=== PATIENT | male | born 1990 | race Hispanic/Latino ===

== ENCOUNTER 2019-12-07 18:16 | Observation (INO) | payer OTHER ==
[2019-12-07] MEDS ORDERED: NALOXONE 0.4 MG/1 ML INJ IV STA (18:24)
[2019-12-07] MEDS ORDERED: SODIUM CHLORIDE 0.9% 1000 ML 1,000 ML IV ONE ×2 (18:24→19:06)
[2019-12-07] MEDS ORDERED: ONDANSETRON 4 MG/2 ML INJ IV ONE ×2 (18:24→22:30)
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
[2019-12-07 18:49] LABS: Basophils % (Auto) 0.2 % (0.0-1.8); Eosinophils # (Auto) 0.1 K/mm3 (0.0-0.4); Eosinophils % (Auto) 0.6 % (0.0-4.3); Hematocrit 47.1 % (35.5-45.6); Hemoglobin 15.5 gm/dl (11.8-15.2); Lymphocytes # (Auto) 3.7 K/mm3 (1.2-5.4); Lymphocytes % (Auto) 22.7 % (13.4-35.0); Mean Corpuscular HGB Conc 33 % (32-34); Mean Corpuscular Volume 92 fl (84-94); Monocytes % (Auto) 5.9 % (0.0-7.3); Platelet Count 281 K/mm3 (140-440); Red Blood Count 5.13 M/mm3 (3.65-5.03); Red Cell Distribution Width 13.5 % (13.2-15.2)
[2019-12-07 19:09] LABS: Alanine Aminotransferase 22 units/L (7-56); Albumin 4.7 g/dL (3.9-5); BUN/Creatinine Ratio 26; Blood Urea Nitrogen 23 mg/dL (9-20); Calcium 9.8 mg/dL (8.4-10.2); Hemolysis Index 95
[2019-12-07] MEDS ORDERED: LORazepam 2 MG/ML VIAL ONE (21:48)
[2019-12-07] MEDS ORDERED: ONDANSETRON 4 MG/2 ML INJ ONE (22:19)
[2019-12-07 23:22] LABS: Amphetamine Screen,Urine PRESUMPTIVE POSITIVE; Benzodiazepines Screen,Urine PRESUMPTIVE NEGATIVE; Cannabinoid Screen,Urine PRESUMPTIVE POSITIVE; Cocaine Screen,Urine PRESUMPTIVE NEGATIVE; Methadone Screen,Urine PRESUMPTIVE NEGATIVE; Opiate Screen,Urine PRESUMPTIVE NEGATIVE
[2019-12-07 23:42] LABS: Bacteria,Urine 1+ /HPF (Negative); Bilirubin,Urine NEG (Negative); Blood,Urine NEG (Negative); Color,Urine Yellow (Yellow); Mucus,Urine FEW /HPF; Protein,Urine <15 mg/dL mg/dL (Negative); RBC,Urine < 1.0 /HPF (0.0-6.0); Urobilinogen,Urine < 2.0 mg/dL (<2.0)
[2019-12-07] MEDS ORDERED: ONDANSETRON 4 MG/2 ML INJ IV PRN (23:55)
[2019-12-08] MEDS ORDERED: SODIUM CHLORIDE 0.9% 1000 ML 1,000 ML IV SCH
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
[2019-12-08 05:05] LABS: Basophils % (Auto) 0.3 % (0.0-1.8); Hematocrit 41.9 % (35.5-45.6); Lymphocytes # (Auto) 1.2 K/mm3 (1.2-5.4); Lymphocytes % (Auto) 7.3 % (13.4-35.0); Mean Corpuscular HGB Conc 34 % (32-34); Mean Corpuscular Volume 91 fl (84-94); Monocytes # (Auto) 0.4 K/mm3 (0.0-0.8); Monocytes % (Auto) 2.5 % (0.0-7.3); Platelet Count 263 K/mm3 (140-440); Red Blood Count 4.63 M/mm3 (3.65-5.03); Red Cell Distribution Width 13.5 % (13.2-15.2)
[2019-12-08 05:12] LABS: INR 1.02 (0.87-1.13)
[2019-12-08 05:18] LABS: BUN/Creatinine Ratio 33; Blood Urea Nitrogen 26 mg/dL (9-20); Calcium 9.5 mg/dL (8.4-10.2); Hemolysis Index 46
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
[2019-12-08] MEDS ORDERED: LORazepam 2 MG/ML VIAL IV ONE (10:30)
--- NOTE | 2019-12-08 11:08 | Consultation ---
History of Present Illness Consult date: 12/08/19 Requesting physician: BOUBACAR OCASIO History of present illness: HISTORY PER ED RECORDS Eduar is a 29-year-old male who presents with intentional overdose. I spoke with sister by phone who informed me that he texted a message stating that he took some pills. Friend suspects that he took 30 tablets of baclofen. Baclofen is known to reach peak serum concentrations in 2 hours with a half-life of 3.5 hours. Patient was supported for the past 4 hours. Salicylate and acetaminophen levels were obtained in order to ensure the absence of coingestants. Sister explained that Eduar has history of past trauma and multiple social stressors. Sister states that Family members have encouraged him to seek help for presumed depression. He has made verbal threats of killing himself on previous occasions according to sister. Nurse colleague spoke with [place] [facility]. We will observe for hypotension, respiratory depression and decline in level of consciousness. Drug peak concentration should occur between 2 to 6 hours. QRS prolongation is also a potential effect. Every 2 hour EKG suggested. Second EKG revealed stable QRS width QRS is unchanged Urine drug screen positive for methamphetamine and marijuana After 6 hours of observation, patient was still sedated yet agitated. Patient was admitted to the ICU for further observation and treatment. I have been consulted fro critical care management. Patient was seen adn examined. He is in 4-point restraints with a sitter at the bedside He is unable to give a history, history is as per medical records. He is lying quietly in bed at this time. Hemodynamically normal but tangential speech Past History Past Medical History: other (Unknown) Past Surgical History: Other (Unknown) Social history: smoking (Current Daily Smoker), other (Polysubstance Abuse) Family history: other (Unknown) Medications and Allergies Allergies Allergy/AdvReac Type Severity Reaction Status Date / Time Unable to Assess Allergy Unverified 12/07/19 23:09 Active Meds: Active Medications Enoxaparin Sodium (Enoxaparin) 40 mg SUB-Q QDAY@2200 JESUS Sodium Chloride (Nacl 0.9% 1000 Ml) 1,000 mls @ 125 mls/hr IV DIRECT JESUS Ondansetron HCl (Zofran) 4 mg IV Q8H PRN PRN Reason: Nausea And Vomiting Sodium Chloride (Sodium Chloride Flush Syringe 10 Ml) 10 ml IV BID JESUS Last Admin: 12/08/19 10:17 Dose: 10 ml Documented by: Sodium Chloride (Sodium Chloride Flush Syringe 10 Ml) 10 ml IV PRN PRN PRN Reason: LINE FLUSH Review of Systems ROS unobtainable: due to mental status Physical Examination Vital signs: Vital Signs Pulse Resp BP Pulse Ox 55 L 17 115/84 95 12/07/19 18:27 12/07/19 18:27 12/07/19 18:27 12/07/19 18:27 General appearance: no acute distress, other (in 4 point restrains, heavilyt tatooed) Eyes: non-icteric ENT: oropharynx moist Neck: supple, no lymphadenopathy, no JVD Effort: normal Ascultation: Bilateral: clear Cardiovascular: regular rate and rhythm, other (S1,S2, no murmurms, gallops or rubs) Gastrointestinal: normoactive bowel sounds, soft, non-tender, non-distended Integumentary: normal Extremities: no cyanosis, no edema Musculoskeletal: no deformities non-focal exam anxious Results - Laboratory Findings CBC and BMP: 12/08/19 04:41 12/08/19 04:41 PT/INR, D-dimer PT 13.6 Sec. (12.2-14.9) 12/08/19 04:41 INR 1.02 (0.87-1.13) 12/08/19 04:41 Abnormal lab findings: Abnormal Labs 12/07/19 12/07/19 12/07/19 18:30 18:30 18:30 WBC 16.3 H RBC 5.13 H Hgb 15.5 H Hct 47.1 H Lymph % (Auto) [place] # 1.0 H Seg Neutrophils % 70.6 H Seg Neutrophils # 11.5 H Carbon Dioxide 20 L BUN 23 H Glucose 128 H Total Protein 9.3 H Salicylates 0.4 L Acetaminophen 12/07/19 12/07/19 12/07/19 18:30 22:12 22:12 WBC RBC Hgb Hct Lymph % (Auto) [place] # Seg Neutrophils % Seg Neutrophils # Carbon Dioxide BUN Glucose Total Protein Salicylates < 0.3 L Acetaminophen 5.0 L 5.0 L 12/08/19 12/08/19 04:41 04:41 WBC 16.7 H RBC Hgb Hct Lymph % (Auto) 7.3 L [place] # Seg Neutrophils % 89.9 H Seg Neutrophils # 15.0 H Carbon Dioxide BUN 26 H Glucose Total Protein Salicylates Acetaminophen Assessment and Plan (1) Acute toxic-metabolic encephalopathy Current Visit: Yes Status: Acute Plan to address problem: Possibly secondary to drug overdose. Patient has been agitated and has a sitter Psych service following (2) Intentional drug overdose Current Visit: Yes Status: Acute Plan to address problem: Patient will be closely monitored in the intensive care unit. (3) Suicide attempt Current Visit: Yes Status: Acute Plan to address problem: Patient be placed on suicide precautions. We will await further evaluation from mental health. (4) DVT prophylaxis Current Visit: Yes Status: Acute Plan to address problem: Patient placed on subcutaneous Lovenox. (5) Full code status Current Visit: Yes Status: Acute Continue to monitor in the ICU for another 24 hours fro cardiac/telemetry monitoring OK to transfer out of the unit in the morning, if he remains hemodynamically normal Last EKG done- no QTc prolongation or arrhythmias noted.
[2019-12-08] MEDS ORDERED: HALOPERIDOL LACTATE 5 MG/1 ML INJ IM PRN (11:14)
[2019-12-08] MEDS ORDERED: VALPROATE SODIUM 250 MG in SODIUM CHLORIDE 0.9% 100 ML IV SCH (12:00)
[2019-12-08] MEDS: ZIPRASIDONE MESYLATE 20 MG VIAL IM SCH ×2 (15:48→16:00)
[2019-12-09] MEDS: ENOXAPARIN 40 MG/0.4 ML INJ SUB-Q SCH ×2 (00:53→22:48)
[2019-12-09] MEDS ORDERED: WATER FOR INJ Sterile (PF) 10 ML ONE ×2 (01:15→22:35)
[2019-12-09] MEDS: ZIPRASIDONE MESYLATE 20 MG VIAL IM SCH ×3 (01:25→22:47)
--- NOTE | 2019-12-09 09:17 | Progress Note ---
Subjective - Reason for Consult Consult date: 12/09/19 Reason for consult: MHE Requesting physician: ADEBAYO COLUNGA - Chief Complaint Chief complaint: Psych Progress Patient seen today, more lucid and oriented to person and place. Patient reports feeling better today, says he is well aware of being in the hospital and mostly due to abnormal behavior. Patient endorses history of schizophrenia, reports being on risperdal, abilify and Valproate in the past all of which was discontinued. 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 Patient denies any suicidal intention, ideation or depressed mood and endorses wishes to get his life back together. REVIEW OF SYSTEMS ROS cannot be reliably obtained from the patient due to his confusion. MENTAL STATUS EXAMINATION General Appearance and Behavior: Age appropriate, poor hygiene, wearing appropriate clothes, lying in bed, poor eye contact, cooperative polite with questioning. Cooperation: cooperative Psychomotor Behavior: no Psychomotor agitation Mood: "I feel better" Affect and affective range: congruent with mood Thought Process: Logical Thought Content: within realty Speech: normal volume, rate and tone Intellectual Functioning: Average Suicidal Ideation: denies Homicidal Ideation: denies Impulse Control: Impaired Insight and Judgment: unimpaired Memory: memory Attention: intact Orientation alert and oriented Assessment and Plan - Psychiatric problem (1) Drug-induced mood disorder Current Visit: Yes Status: Acute (2) Polysubstance abuse Current Visit: Yes Status: Acute Treatment Plan Recommend inpatient stay for today if medically cleared today, due to psych medication observation but can be discharged home tomorrow if medically cleared but please ensure safety discharge plan with outpt drug use resources is completed. MEDICATIONS: IM geodon BID 10 mg, with Depakon IV 250 ml BID Risks, benefits and alternatives of medications discussed with the patient, questions answered and consent obtained from patient. PSYCHOTHERAPY: Supportive psychotherapy provided MEDICAL: Per primary team DELIRIUM PRECAUTIONS: Please re-orient patient frequently, keep lights on during the day, and minimize benzodiazepines and opiates as these medications could worsen patient's confusion. 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 Outpt drug resource program LEGAL STATUS: 1013 rescinded FOLLOW-UP: Will follow for medication tolerance and monitoring. Thank you for the consult. Please contact with any questions and/or concerns. Mental Status Exam - Vital signs Last Vital Signs Temp 98.1 F 12/09/19 08:16 Pulse 92 H 12/09/19 08:30 Resp 19 12/09/19 08:30 BP 125/88 12/09/19 08:30 Pulse Ox 100 12/09/19 08:30 Assessment and Plan - Patient Problems (1) Drug-induced mood disorder Current Visit: Yes Status: Acute (2) Polysubstance abuse Current Visit: Yes Status: Acute
--- NOTE | 2019-12-09 10:03 | Progress Note ---
Assessment and Plan Assessment and plan: 29-year-old male with unknown past medical history was brought into the emergency room today with intentional drug overdose. According to a friend who gave information, it was stated that patient took about 30 tablets of baclofen after having an altercation with another friend. Patient sister (Terra) with phone number [phone] indicates that patient has been under a lot of stress and has made previous tries to kill himself. No attempts have been made in the past however sent a text to his sister indicating that he took some pills earlier today. Patient recently returned to [place] after breaking up with ex-girlfriend in [place]. It is also gathered that patient has had strained relationship with multiple family members and therefore does not have strong family support. Most of this history was gotten from the ER physician as patient is unable to give any history. Is currently sedated and in four-point restraint. Work-up in the emergency room reveals a UDS positive for amphetamines and marijuana. He had a leukocytosis of 16,000. Patient was admitted to the ICU for closer monitoring. 12/07. Psych consulted. Started on medications. 12/08. Patient regrets his decision gregory trying to harm self. Patient has been seen by psych -rec monitoring for 24 hours. No need for inpatient psych. Plan for DC tomorrow. - Patient Problems (1) Acute encephalopathy Current Visit: Yes Status: Acute Plan to address problem: Possibly secondary to drug overdose. Improved. Psych recs appreciated (2) Intentional drug overdose Current Visit: Yes Status: Acute Plan to address problem: Continue antipsych medications As per psych, patient can be dc home tomorrow (3) Suicide attempt Current Visit: Yes Status: Acute Plan to address problem: Continue antipsych medications As per psych, patient can be dc home tomorrow (4) DVT prophylaxis Current Visit: Yes Status: Acute Plan to address problem: Patient placed on subcutaneous Lovenox. (5) Full code status Current Visit: Yes Status: Acute History Interval history: See assessment and plan Hospitalist Physical - Constitutional Vitals: Temp Pulse Resp BP Pulse Ox 98.1 F 92 H 19 125/88 100 12/09/19 08:16 12/09/19 08:30 12/09/19 08:30 12/09/19 08:30 12/09/19 08:30 General appearance: Present: no acute distress, well-nourished, other (Multiple tattoos on chest) - Respiratory Respiratory effort: normal Respiratory: bilateral: CTA - Cardiovascular Rhythm: regular Heart Sounds: Present: S1 & S2 - Extremities Extremities: no ischemia, No edema - Abdominal General gastrointestinal: soft, non-tender, non-distended, normal bowel sounds - Psychiatric Psychiatric: appropriate mood/affect - Neurologic Neurologic: CNII-XII intact Results - Labs CBC & Chem 7: 12/08/19 04:41 12/08/19 04:41 Labs: Laboratory Last Values WBC 16.7 K/mm3 (4.5-11.0) H 12/08/19 04:41 RBC 4.63 M/mm3 (3.65-5.03) 12/08/19 04:41 Hgb 14.0 gm/dl (11.8-15.2) 12/08/19 04:41 Hct 41.9 % (35.5-45.6) 12/08/19 04:41 MCV 91 fl (84-94) 12/08/19 04:41 MCH 30 pg (28-32) 12/08/19 04:41 MCHC 34 % (32-34) 12/08/19 04:41 RDW 13.5 % (13.2-15.2) 12/08/19 04:41 Plt Count 263 K/mm3 (140-440) 12/08/19 04:41 Lymph % (Auto) 7.3 % (13.4-35.0) L 12/08/19 04:41 [place] % (Auto) 2.5 % (0.0-7.3) 12/08/19 04:41 Eos % (Auto) 0.0 % (0.0-4.3) 12/08/19 04:41 Baso % (Auto) 0.3 % (0.0-1.8) 12/08/19 04:41 Lymph # 1.2 K/mm3 (1.2-5.4) 12/08/19 04:41 [place] # 0.4 K/mm3 (0.0-0.8) 12/08/19 04:41 Eos # 0.0 K/mm3 (0.0-0.4) 12/08/19 04:41 Baso # 0.0 K/mm3 (0.0-0.1) 12/08/19 04:41 Seg Neutrophils % 89.9 % (40.0-70.0) H 12/08/19 04:41 Seg Neutrophils # 15.0 K/mm3 (1.8-7.7) H 12/08/19 04:41 PT 13.6 Sec. (12.2-14.9) 12/08/19 04:41 INR 1.02 (0.87-1.13) 12/08/19 04:41 Sodium 143 mmol/L (137-145) 12/08/19 04:41 Potassium 4.8 mmol/L (3.6-5.0) 12/08/19 04:41 Chloride 105.2 mmol/L (98-107) 12/08/19 04:41 Carbon Dioxide 22 mmol/L (22-30) 12/08/19 04:41 Anion Gap 21 mmol/L 12/08/19 04:41 BUN 26 mg/dL (9-20) H 12/08/19 04:41 Creatinine 0.8 mg/dL (0.8-1.3) 12/08/19 04:41 Estimated GFR > 60 ml/min 12/08/19 04:41 BUN/Creatinine Ratio 33 % 12/08/19 04:41 Glucose 93 mg/dL (75-100) 12/08/19 04:41 POC Glucose 94 (70-105) 12/08/19 02:53 Calcium 9.5 mg/dL (8.4-10.2) 12/08/19 04:41 Total Bilirubin 0.60 mg/dL (0.1-1.2) 12/07/19 18:30 AST 40 units/L (5-40) 12/07/19 18:30 ALT 22 units/L (7-56) 12/07/19 18:30 Alkaline Phosphatase 68 units/L (35-129) 12/07/19 18:30 Total Protein 9.3 g/dL (6.3-8.2) H 12/07/19 18:30 Albumin 4.7 g/dL (3.9-5) 12/07/19 18:30 Albumin/Globulin Ratio 1.0 % 12/07/19 18:30 Urine Color Yellow (Yellow) 12/07/19 23:03 Urine Turbidity Clear (Clear) 12/07/19 23:03 Urine pH 5.0 (5.0-7.0) 12/07/19 23:03 Ur Specific [place] 1.018 (1.003-1.030) 12/07/19 23:03 Urine Protein <15 mg/dl mg/dL (Negative) 12/07/19 23:03 Urine Glucose (UA) Neg mg/dL (Negative) 12/07/19 23:03 Urine Ketones 20 mg/dL (Negative) 12/07/19 23:03 Urine Blood Neg (Negative) 12/07/19 23:03 Urine Nitrite Neg (Negative) 12/07/19 23:03 Urine Bilirubin Neg (Negative) 12/07/19 23:03 Urine Urobilinogen < 2.0 mg/dL (<2.0) 12/07/19 23:03 Ur Leukocyte Esterase Neg (Negative) 12/07/19 23:03 Urine WBC (Auto) 2.0 /HPF (0.0-6.0) 12/07/19 23:03 Urine RBC (Auto) < 1.0 /HPF (0.0-6.0) 12/07/19 23:03 Urine Bacteria (Auto) 1+ /HPF (Negative) 12/07/19 23:03 Urine Mucus Few /HPF 12/07/19 23:03 Salicylates < 0.3 mg/dL (2.8-20.0) L 12/07/19 22:12 Urine Opiates Screen Presumptive negative 12/07/19 23:03 Urine Methadone Screen Presumptive negative 12/07/19 23:03 Acetaminophen 5.0 ug/mL (10.0-30.0) L 12/07/19 22:12 Ur Barbiturates Screen Presumptive negative 12/07/19 23:03 Ur Phencyclidine Scrn Presumptive negative 12/07/19 23:03 Ur Amphetamines Screen Presumptive positive 12/07/19 23:03 U Benzodiazepines Scrn Presumptive negative 12/07/19 23:03 Urine Cocaine Screen Presumptive negative 12/07/19 23:03 U Marijuana (THC) Screen Presumptive positive 12/07/19 23:03 Drugs of Abuse Note Disclamer 12/07/19 23:03 Plasma/Serum Alcohol < 0.01 % (0-0.07) 12/07/19 18:30 Meyer/IV: Voiding Method Urinal IV Catheter Type [Left INT / Saline Lock Antecubital] Active Medications - Current Medications Current Medications: Generic Name Dose Route Start Last Admin Trade Name Freq PRN Reason Stop Dose Admin Enoxaparin Sodium 40 mg 12/08/19 22:00 12/09/19 00:53 Enoxaparin SUB-Q 40 mg QDAY@2200 JESUS Administration Haloperidol Lactate 5 mg 12/08/19 11:14 12/08/19 11:34 Haldol IM 5 mg ONCE PRN Administration Agitation Sodium Chloride 1,000 mls @ 125 mls/hr 12/08/19 00:00 Nacl 0.9% 1000 Ml IV DIRECT JESUS Ondansetron HCl 4 mg 12/07/19 23:55 Zofran IV Q8H PRN Nausea And Vomiting Sodium Chloride 10 ml 12/08/19 10:00 12/09/19 00:55 Sodium Chloride Flush Syringe 10 Ml IV 10 ml BID JESUS Administration Sodium Chloride 10 ml 12/07/19 23:55 Sodium Chloride Flush Syringe 10 Ml IV PRN PRN LINE FLUSH Valproic Acid 250 mg 12/09/19 10:00 Depakene Liq PO BID JESUS Ziprasidone 10 mg 12/08/19 12:00 12/09/19 01:25 Geodon IM 12/09/19 22:01 10 mg BID JESUS Administration
[2019-12-09] MEDS: VALPROIC ACID 250 MG/5 ML ORAL LIQD PO SCH ×2 (10:21→22:48)
--- NOTE | 2019-12-09 10:51 | Progress Note ---
Assessment and Plan (1) Acute toxic-metabolic encephalopathy (2) Intentional drug overdose (3) Suicide attempt (4) DVT prophylaxis (5) Full code status -Doing much better, continue all current care -Psych evaluation, on going -OK to transfer out of the ICU -Supportive care Subjective Date of service: 12/09/19 Interval history: Follow up for ; Acute toxic-metabolic encephalopathy;Intentional drug overdose;Suicide attempt Seen and examined. Vitals, labs, medications, cahrt reviewed. No adverse overnight events, much better" This is Eduar" Denies any chest pain, no shortness of breath, no fevers or chills. No diarrhea or vomiting. Tolerated breakfast well Objective Vital Signs - 12hr 12/08/19 12/08/19 12/08/19 23:00 23:03 23:30 Temperature Pulse Rate 98 H 84 87 Respiratory 16 18 17 Rate Blood Pressure 129/69 129/69 O2 Sat by Pulse 97 98 100 Oximetry 12/09/19 12/09/19 12/09/19 00:00 00:30 01:00 Temperature 99.0 F Pulse Rate 81 94 H 92 H Respiratory 17 22 25 H Rate Blood Pressure 114/69 114/69 116/70 O2 Sat by Pulse 99 100 100 Oximetry 12/09/19 12/09/19 12/09/19 01:30 01:35 02:00 Temperature Pulse Rate 79 89 Respiratory 19 19 17 Rate Blood Pressure 116/70 118/66 O2 Sat by Pulse 98 100 99 Oximetry 12/09/19 12/09/19 12/09/19 02:30 03:00 03:30 Temperature Pulse Rate 89 81 Respiratory 18 21 Rate Blood Pressure 118/66 106/70 106/70 O2 Sat by Pulse 98 100 99 Oximetry 12/09/19 12/09/19 12/09/19 04:00 04:30 05:00 Temperature Pulse Rate 93 H 66 68 Respiratory 20 16 18 Rate Blood Pressure 122/70 122/70 119/68 O2 Sat by Pulse 100 100 100 Oximetry 12/09/19 12/09/19 12/09/19 05:30 06:00 06:30 Temperature Pulse Rate 79 89 67 Respiratory 18 14 15 Rate Blood Pressure 119/68 125/73 125/73 O2 Sat by Pulse 100 100 99 Oximetry 12/09/19 12/09/19 12/09/19 07:00 07:30 08:00 Temperature Pulse Rate 80 Respiratory 21 19 Rate Blood Pressure 121/76 121/76 125/88 O2 Sat by Pulse 100 99 100 Oximetry 12/09/19 12/09/19 08:16 08:30 Temperature 98.1 F Pulse Rate 92 H Respiratory 19 Rate Blood Pressure 125/88 O2 Sat by Pulse 100 Oximetry Constitutional: no acute distress, alert Eyes: non-icteric ENT: oropharynx moist Neck: supple, no lymphadenopathy, no JVD Effort: normal Ascultation: Bilateral: clear Cardiovascular: regular rate and rhythm, other (S1,S2, no murmurms, gallops or rubs) Gastrointestinal: normoactive bowel sounds, soft, non-tender, non-distended Integumentary: normal Extremities: no cyanosis, no edema, pink and warm, pulses normal Neurologic: normal mental status, non-focal exam, pupils equal and round, CN II- XII normal, motor strength normal and Psychiatric: mood appropriate, affect normal CBC and BMP: 12/08/19 04:41 12/08/19 04:41 ABG, PT/INR, D-dimer: PT/INR, D-dimer PT 13.6 Sec. (12.2-14.9) 12/08/19 04:41 INR 1.02 (0.87-1.13) 12/08/19 04:41 Abnormal lab findings: Abnormal Labs 12/07/19 12/07/19 12/07/19 18:30 18:30 18:30 WBC 16.3 H RBC 5.13 H Hgb 15.5 H Hct 47.1 H Lymph % (Auto) Sac # 1.0 H Seg Neutrophils % 70.6 H Seg Neutrophils # 11.5 H Carbon Dioxide 20 L BUN 23 H Glucose 128 H Total Protein 9.3 H Salicylates 0.4 L Acetaminophen 12/07/19 12/07/19 12/07/19 18:30 22:12 22:12 WBC RBC Hgb Hct Lymph % (Auto) Sac # Seg Neutrophils % Seg Neutrophils # Carbon Dioxide BUN Glucose Total Protein Salicylates < 0.3 L Acetaminophen 5.0 L 5.0 L 12/08/19 12/08/19 04:41 04:41 WBC 16.7 H RBC Hgb Hct Lymph % (Auto) 7.3 L Sac # Seg Neutrophils % 89.9 H Seg Neutrophils # 15.0 H Carbon Dioxide BUN 26 H Glucose Total Protein Salicylates Acetaminophen Allied health notes reviewed: nursing
[2019-12-10 04:29] VITALS: BP 101/63
--- NOTE | 2019-12-10 07:51 | Progress Note ---
Subjective - Reason for Consult Consult date: 12/10/19 Reason for consult: MHE Requesting physician: BOUBACAR OCASIO - Chief Complaint Chief complaint: Psych Progress Patient seen today, transferred to medical floor, patient is stable and was waiting on me anxiously as he was told, I would be the one to clear him. Patient reports feeling good, says hospital food reminds him of [facility] food and just cant wait to leave. Patient denies AVH, SI or HI. Says he would like a bus pass if one can be given and does not want senior care information, though homeless, he claims he has buddies he could call. REVIEW OF SYSTEMS ROS cannot be reliably obtained from the patient due to his confusion. MENTAL STATUS EXAMINATION General Appearance and Behavior: Age appropriate, poor hygiene, wearing appropriate clothes, lying in bed, poor eye contact, cooperative polite with questioning. Cooperation: cooperative Psychomotor Behavior: no Psychomotor agitation Mood: "I feel better" Affect and affective range: congruent with mood Thought Process: Logical Thought Content: within realty Speech: normal volume, rate and tone Intellectual Functioning: Average Suicidal Ideation: denies Homicidal Ideation: denies Impulse Control: Impaired Insight and Judgment: unimpaired Memory: memory Attention: intact Orientation alert and oriented Assessment and Plan - Psychiatric problem (1) Drug-induced mood disorder Current Visit: Yes Status: Acute (2) Polysubstance abuse Current Visit: Yes Status: Acute Treatment Plan Maybe discharged with rx MEDICATIONS: outpt meds given Risks, benefits and alternatives of medications discussed with the patient, questions answered and consent obtained from patient. PSYCHOTHERAPY: Supportive psychotherapy provided MEDICAL: Per primary team DELIRIUM PRECAUTIONS: Please re-orient patient frequently, keep lights on during the day, and minimize benzodiazepines and opiates as these medications could worsen patient's confusion. 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 Outpt drug resource program LEGAL STATUS: 1013 rescinded FOLLOW-UP: Will sign off Thank you for the consult. Please contact with any questions and/or concerns. Mental Status Exam - Vital signs Last Vital Signs Temp 98.9 F 12/10/19 03:56 Pulse 67 12/10/19 03:56 Resp 16 12/10/19 03:56 BP 101/63 12/10/19 03:56 Pulse Ox 99 12/10/19 03:56 Assessment and Plan - Patient Problems (1) Drug-induced mood disorder Current Visit: Yes Status: Acute (2) Polysubstance abuse Current Visit: Yes Status: Acute
--- NOTE | 2019-12-10 10:12 | Discharge Summary ---
Providers - Providers Date of Admission: 12/07/19 23:44 Date of discharge: 12/10/19 Attending physician: BOUBACAR OCASIO 12/07/19 21:55 Consult to Mental Health [CONS] Stat Reason For Exam: Intentional drug overdose suicide attempt 12/08/19 10:54 Consult to Physician [CONS] Routine Comment: Consulting Provider: JOHANA LIM Physician Instructions: Reason For Exam: critical care Primary care physician: SONOGRAPHY TECHNOLOGIST Hospitalization Reason for admission: Drug overdose Condition: Fair Hospital course: 29-year-old male with unknown past medical history was brought into the emergency room today with intentional drug overdose. According to a friend who gave information, it was stated that patient took about 30 tablets of baclofen after having an altercation with another friend. Patient sister (Terra) with phone number [phone] indicates that patient has been under a lot of stress and has made previous tries to kill himself. No attempts have been made in the past however sent a text to his sister indicating that he took some pills earlier today. Patient recently returned to [place] after breaking up with ex-girlfriend in [place]. It is also gathered that patient has had strained relationship with multiple family members and therefore does not have strong family support. Most of this history was gotten from the ER physician as patient is unable to give any history. Is currently sedated and in four-point restraint. Work-up in the emergency room reveals a UDS positive for amphetamines and marijuana. He had a leukocytosis of 16,000. Patient was admitted to the ICU for closer monitoring. 12/07. Psych consulted. Started on medications. 12/08. Patient regrets his decision to attempting to harm himself. Patient has been seen by psych -rec monitoring for 24 hours. No need for inpatient psych. Plan for DC tomorrow. 12/09. Patient has been cleared by psych. he will be going home on psych medications Disposition: DC-01 TO HOME OR SELFCARE - Discharge Diagnoses (1) Drug-induced mood disorder Status: Acute (2) Intentional drug overdose Status: Acute Core Measure Documentation - Palliative Care Palliative Care/ Comfort Measures: Not Applicable - Core Measures Any of the following diagnoses?: none Exam - Constitutional Vitals: Temp Pulse Resp BP Pulse Ox 98.9 F 67 16 101/63 99 12/10/19 03:56 12/10/19 03:56 12/10/19 03:56 12/10/19 03:56 12/10/19 03:56 General appearance: Present: no acute distress, well-nourished - EENT Eyes: Present: PERRL ENT: hearing intact, clear oral mucosa - Neck Neck: Present: supple, normal ROM - Respiratory Respiratory effort: normal Respiratory: bilateral: CTA - Cardiovascular Heart Sounds: Present: S1 & S2. Absent: rub, click - Extremities Extremities: pulses symmetrical, No edema Peripheral Pulses: within normal limits - Abdominal General gastrointestinal: Present: soft, non-tender, non-distended, normal bowel sounds Male genitourinary: Present: normal - Integumentary Integumentary: Present: clear, warm, dry - Musculoskeletal Musculoskeletal: gait normal, strength equal bilaterally - Psychiatric Psychiatric: appropriate mood/affect, intact judgment & insight - Neurologic Neurologic: CNII-XII intact, moves all extremities Plan Activity: no restrictions Additional Instructions: Follow up with psychiatry in the office. Continue medications as prescribed Follow up with: PRIMARY CARE,MD [Primary Care Provider] - 7 Days Prescriptions: OLANZapine [Zyprexa] 5 mg PO QHS #30 tablet Divalproex [Shazia RAYMUNDO] 250 mg PO BID #60 tablet
== END 2019-12-10 10:54 | disposition home or self-care (01) ==
LOC: ED 18:16 → EEVIPCON 18:16 → CC1 23:44 → 4A 12-09 11:55
PROVIDERS: ADMIT Internal Medicine Geriatric Medicine; ATTEND Internal Medicine
DX: T42.8X2A Poisoning by antiparkinsonism drugs and other central muscle-tone depressants, intentional self-harm, initial encounter (principal); G93.40 Encephalopathy, unspecified; F19.94 Other psychoactive substance use, unspecified with psychoactive substance-induced mood disorder; F32.9 Major depressive disorder, single episode, unspecified; F17.200 Nicotine dependence, unspecified, uncomplicated; Z79.899 Other long term (current) drug therapy
CPT/HCPCS: 36415; 80048; 80053; 80307; 81001; 82962; 85025; 85610; 93005; 96361; 96372; 96374; 96375; 96376; 99291; G0378; J1630; J1650; J2060; J2310; J2405; J3486; J7030; 80320; G0480

== ENCOUNTER 2020-04-21 17:34 | Emergency (ER) | payer OTHER ==
[2020-04-21 17:53] VITALS: BP 116/75
--- NOTE | 2020-04-21 18:44 | Emergency Department Report ---
ED Male HPI - General Chief complaint: Urogenital-Male Stated complaint: EXPOSURE TO STD;PENILE DISCHARGE Time Seen by Provider: 04/21/20 17:52 Source: patient Mode of arrival: Ambulatory Limitations: No Limitations - History of Present Illness Initial comments: This is a 29-year-old male nontoxic, well nourished in appearance, no acute signs of distress presents to the ED with c/o of penile discomfort. Patient stated "it is just discomfort that comes and goes". patient denies any penile discharge. Patient denies any testicular pain or swelling. Patient stated he wants to get a STD testing. Patient denies any penile ulcers or lesions. Patient denies any nausea, vomiting, chest pain, shortness of breathe, fever, chills, headache, back pain, numbness, tingling, stiff neck. Patient denies any urinary symptoms. Patient denies any allergies or PMH. -: days(s) Radiation: none Severity scale (0 -10): 0 Improves with: none Worsens with: none denies other symptoms. denies: discharge, swelling, mass, rash, urinary retention, blood in urine, dysuria, fever, nausea/vomiting, incontinence - Related Data Previous Rx's Medication Instructions Recorded Last Taken Type Divalproex Dr [DepaKOTE DR] 250 mg PO BID #60 tablet 12/10/19 Unknown Rx OLANZapine [Zyprexa] 5 mg PO QHS #30 tablet 12/10/19 Unknown Rx Allergies Allergy/AdvReac Type Severity Reaction Status Date / Time No Known Allergies Allergy Unverified 04/21/20 17:49 ED Review of Systems ROS: Stated complaint: EXPOSURE TO STD;PENILE DISCHARGE Other details as noted in HPI Comment: All other systems reviewed and negative Constitutional: denies: chills, fever Eyes: denies: eye pain, eye discharge, vision change ENT: denies: ear pain, throat pain Respiratory: denies: cough, shortness of breath, wheezing Cardiovascular: denies: chest pain, palpitations Endocrine: no symptoms reported Gastrointestinal: denies: abdominal pain, nausea, diarrhea Genitourinary: denies: urgency, dysuria Musculoskeletal: denies: back pain, joint swelling, arthralgia Skin: denies: rash, lesions Neurological: denies: headache, weakness, paresthesias Psychiatric: denies: anxiety, depression Hematological/Lymphatic: denies: easy bleeding, easy bruising ED Past Medical Hx - Past Medical History Previous Medical History?: No Additional medical history: Unable to obtain - Surgical History Past Surgical History?: No Additional Surgical History: Unable to obtain - Social History Smoking Status: Current Every Day Smoker Substance Use Type: None - Medications Home Medications: Home Medications Medication Instructions Recorded Confirmed Last Taken Type Divalproex Dr [DepaKOTE DR] 250 mg PO BID #60 tablet 12/10/19 Unknown Rx OLANZapine [Zyprexa] 5 mg PO QHS #30 tablet 12/10/19 Unknown Rx ED Physical Exam - General Limitations: No Limitations General appearance: alert, in no apparent distress - Head Head exam: Present: atraumatic, normocephalic - Eye Eye exam: Present: normal appearance - Respiratory Respiratory exam: Absent: respiratory distress - Cardiovascular Cardiovascular Exam: Present: regular rate - Extremities Exam Extremities exam: Present: full ROM - Back Exam Back exam: Present: full ROM - Neurological Exam Neurological exam: Present: alert, oriented X3, normal gait - Psychiatric Psychiatric exam: Present: normal affect, normal mood - Skin Skin exam: Present: warm, dry, intact, normal color. Absent: rash ED Course Vital Signs 04/21/20 17:51 Temperature 98.0 F Pulse Rate 95 H Respiratory 16 Rate Blood Pressure 116/75 O2 Sat by Pulse 96 Oximetry - Reevaluation(s) Reevaluation #1: 04/21/20 18:42 Patient is speaking in full sentences with no signs of distress noted. ED Medical Decision Making - Medical Decision Making This is a 29-year-old male that presents with nonmedical emergency. Patient is stable and was examined by me. Patient is asymptomatic and denies any symptoms. Patient states he just wants to be tested for STD. Patient has been given referrals for his condition for follow-up. At time of discharge, the patient does not seem toxic or ill in appearance. No acute signs of distress noted. Patient agrees to discharge treatment plan of care. No further questions noted by the patient. Critical care attestation.: If time is entered above; I have spent that time in minutes in the direct care of this critically ill patient, excluding procedure time. ED Disposition Clinical Impression: Possible exposure to STD Disposition: MED SCREENING EXAM-LEFT Is pt being admited?: No Does the pt Need Aspirin: No Condition: Stable Instructions: Safe Sex Additional Instructions: Follow-up with the referrals that you have been provided today as soon as possible or if symptoms worsen and continue return to emergency room as soon as possible. Referrals: PRIMARY CAREMD [Primary Care Provider] - 3-5 Days LINDA MCGOWAN MD [Staff Physician] - 3-5 Days [facility] [Provider Group] - 3-5 Days [facility] [Outside] - 3-5 Days Time of Disposition: 18:43 (')
== END 2020-04-21 19:23 | disposition left against medical advice (07) ==
LOC: ED 17:34
DX: Z20.2 Contact with and (suspected) exposure to infections with a predominantly sexual mode of transmission (principal); Z53.21 Procedure and treatment not carried out due to patient leaving prior to being seen by health care provider